=== PATIENT | male | born 1940 | race Caucasian/White ===

== ENCOUNTER → 2017-03-09 | Outpatient (CLI) | payer OTHER ==
[~2017-03-09] MED LIST: AMLO-114 PO; ASCO500C43 PO; ASPCH81X OR; CALCTAB7 PO; CHOL100027 PO; CINN500T PO; CLB/200 PO; CLC/300 PO; CRD200 PO; CRG625 PO; CYAN250T PO; FRS/40 PO; HYDC25 PO; HYDR-4717 PO; HYDR-5688 PO; INSU1INJ7 SC; LACT10SO30 PO; LEVO25TA PO; LISI40TA PO; MAGN400T5 PO; METF500T PO; MULTI VITAMIMINERALS PO; NVLGI SC; NVLNI SQ; OMEP20CA9 PO; ONDA8TAB6 PO; OXYC-409 PO; SIMV40TA2 PO; SSDCR400 TOP; WARF10TA PO; WARF5TAB90 PO; milk thistle PO
[2017-03-09 17:37] LABS: HEMATOCRIT 38.6 % (42-52); MEAN CELL VOLUME 83.4 fL (80-100); MEAN CORPUSCULAR HEMOGLOBIN 26.8 pg (25-34); MEAN CORPUSCULAR HGB CONC 32.1 g/dl (32-36); MEAN PLATELET VOLUME 10.3 fL (7.4-10.4); PLATELET COUNT 172 K/uL (130-400); RED BLOOD COUNT 4.63 M/uL (4.7-6.1); WHITE BLOOD COUNT 5.75 K/uL (4.8-10.8)
[2017-03-09 19:18] LABS: AST/SGOT 32 U/L (15-37); BLOOD UREA NITROGEN 31 mg/dl (7-18); CALCIUM 8.5 mg/dl (8.5-10.1); CARBON DIOXIDE 30 mmol/L (21-32); CHLORIDE 100 mmol/L (98-107); GLUCOSE 123 mg/dl (70-99); POTASSIUM 4.2 mmol/L (3.5-5.1); SODIUM 137 mmol/L (136-145)
[2017-03-09 19:28] LABS: ALB/GLOB RATIO 1.2 (0.9-2); ALKALINE PHOSPHATASE 84 U/L (45-117)
[2017-03-09 19:43] LABS: ALT/SGPT 41 U/L (12-78)
== END | disposition home or self-care (01) ==
LOC: C.LABBFT 14:41
PROVIDERS: ATTEND Internal Medicine Interventional Cardiology
DX: I25.10 Atherosclerotic heart disease of native coronary artery without angina pectoris (principal); I48.91 Unspecified atrial fibrillation

== ENCOUNTER → 2017-03-10 | Outpatient (CLI) | payer OTHER ==
[2017-03-10 12:55] LABS: CHOLESTEROL/HDL RATIO 3.1
== END | disposition home or self-care (01) ==
LOC: C.LABBFT 07:34
PROVIDERS: ATTEND Internal Medicine Interventional Cardiology
DX: E78.5 Hyperlipidemia, unspecified (principal)

== ENCOUNTER → 2017-12-02 | Outpatient (CLI) | payer OTHER ==
[2017-12-02 17:27] LABS: HEMATOCRIT 40.2 % (42-52); HEMOGLOBIN 12.8 g/dL (14.0-18.0); MEAN CELL VOLUME 82.4 fL (80-100); MEAN CORPUSCULAR HEMOGLOBIN 26.2 pg (25-34); MEAN CORPUSCULAR HGB CONC 31.8 g/dl (32-36); MEAN PLATELET VOLUME 10.4 fL (7.4-10.4); PLATELET COUNT 177 K/uL (130-400); RED CELL DISTRIBUTION WIDTH CV 16.5 % (11.5-14.5); WHITE BLOOD COUNT 6.39 K/uL (4.8-10.8)
[2017-12-02 17:40] LABS: ALT/SGPT 32 U/L (12-78); BLOOD UREA NITROGEN 31 mg/dl (7-18); CALCIUM 9.4 mg/dl (8.5-10.1); CARBON DIOXIDE 31 mmol/L (21-32); CHOLESTEROL 122 mg/dl (0-200); CREATININE 1.47 mg/dl (0.60-1.40); GLUCOSE 112 mg/dl (70-99); POTASSIUM 4.1 mmol/L (3.5-5.1); SODIUM 137 mmol/L (136-145)
[2017-12-02 17:43] LABS: ALKALINE PHOSPHATASE 87 U/L (45-117); AST/SGOT 34 U/L (15-37); LDL CHOLESTEROL CALCULATED 42 mg/dl; TOTAL PROTEIN 7.9 gm/dl (6.4-8.2)
[2017-12-02 17:51] LABS: CREATININE RANDOM URINE 28.2 mg/dl
[2017-12-03 06:23] LABS: HEMOGLOBIN A1C 6.8 % (4.5-5.6)
== END | disposition home or self-care (01) ==
LOC: C.LABBFT 12:52
PROVIDERS: ATTEND Physician Assistant Medical
DX: E11.49 Type 2 diabetes mellitus with other diabetic neurological complication (principal); I10 Essential (primary) hypertension

== ENCOUNTER → 2018-06-11 | Outpatient (CLI) | payer OTHER ==
[~2018-06-11] MED LIST changes: -AMLO-114 PO; +AMLO10TA3 PO; +ONDA-170 PO; -ONDA8TAB6 PO
[2018-06-11 17:47] LABS: HEMATOCRIT 40.1 % (42-52); HEMOGLOBIN 12.8 g/dL (14.0-18.0); MEAN CELL VOLUME 82.5 fL (80-100); MEAN CORPUSCULAR HEMOGLOBIN 26.3 pg (25-34); MEAN CORPUSCULAR HGB CONC 31.9 g/dl (32-36); MEAN PLATELET VOLUME 10.7 fL (7.4-10.4); PLATELET COUNT 160 K/uL (130-400); RED CELL DISTRIBUTION WIDTH CV 16.8 % (11.5-14.5); RED CELL DISTRIBUTION WIDTH SD 50.7 fL (36.4-46.3); WHITE BLOOD COUNT 5.42 K/uL (4.8-10.8)
[2018-06-11 18:00] LABS: ALBUMIN 3.7 gm/dl (3.4-5.0); ALKALINE PHOSPHATASE 82 U/L (45-117); ALT/SGPT 32 U/L (12-78); AST/SGOT 30 U/L (15-37); BLOOD UREA NITROGEN 29 mg/dl (7-18); CARBON DIOXIDE 30 mmol/L (21-32); CHOLESTEROL 108 mg/dl (0-200); CREATININE 1.56 mg/dl (0.60-1.40); GLUCOSE 197 mg/dl (70-99); LDL CHOLESTEROL CALCULATED 23 mg/dl; POTASSIUM 4.3 mmol/L (3.5-5.1); SODIUM 136 mmol/L (136-145); TOTAL PROTEIN 7.5 gm/dl (6.4-8.2)
[2018-06-12 07:52] LABS: HEMOGLOBIN A1C 7.5 % (4.5-5.6)
== END | disposition home or self-care (01) ==
LOC: C.LABBFT 14:06
PROVIDERS: ATTEND Physician Assistant Medical
DX: D64.9 Anemia, unspecified (principal); E78.5 Hyperlipidemia, unspecified; E11.29 Type 2 diabetes mellitus with other diabetic kidney complication

== ENCOUNTER 2020-09-07 16:18 | Observation (INO) ==
--- NOTE | 2020-09-07 16:58 | XRay Report ---
XR chest 1V portable HISTORY: Dyspnea COMPARISON: Chest 09/04/2020. FINDINGS: The heart remains enlarged. No pleural effusions. No pneumothorax. Mild interstitial thicke lamonte remains unchanged. No new focal lung consolidations to suggest pneumonia. No evidence for pulmon tila edema. IMPRESSION: Stable mild cardiomegaly. Otherwise, no acute process within the chest. ACT 112: Negative or not required by law. Electronically signed by: Wenceslao Singleton M.D. 09/07/2020 4:56 PM
[2020-09-07 17:23] LABS: Basophils # (auto) 0.04 K/uL (0-0.2); Basophils % (auto) 0.7 %; Eosinophils # (auto) 0.11 K/uL (0-0.5); Eosinophils % (auto) 1.8 %; Hematocrit (blood only) 37.3 % (42-52); Hemoglobin 11.7 g/dL (14.0-18.0); Immature Granulocytes # (auto) 0.01 K/uL (0.00-0.02); Immature Granulocytes % (auto) 0.2 %; Lymphocytes # (auto) 0.98 K/uL (1.2-3.4); Mean Corpuscular Hemoglobin 27.1 pg (25-34); Mean Corpuscular Hgb Conc 31.4 g/dL (32-36); Mean Corpuscular Volume 86.5 fL (80-100); Mean Platelet Volume 9.5 fL (7.4-10.4); Monocytes # (auto) 0.43 K/uL (0.11-0.59); Neutrophils # (auto) 4.56 K/uL (1.4-6.5); Neutrophils % (auto) 74.3 %; Platelet Count 169 K/uL (130-400); RDW Coefficient of Variation 16.9 % (11.5-14.5); RDW Standard Deviation 53.8 fL (36.4-46.3); Red Blood Count 4.31 M/uL (4.7-6.1); White Blood Count 6.13 K/uL (4.8-10.8)
[2020-09-07 17:24] LABS: INR 1.1 (0.9-1.1); Partial Thromboplastin Ratio 1.1; Partial Thromboplastin Time 29.3 Seconds (21.0-31.0); Prothrombin Time 11.1 Seconds (9.0-12.0)
[2020-09-07 17:28] LABS: Alanine Aminotransferase 15 U/L (12-78); Albumin Level 3.4 gm/dl (3.4-5.0); Aspartate Aminotransferase 16 U/L (15-37); BUN Creatinine Ratio 20.9 (10-20); Blood Urea Nitrogen 28 mg/dl (7-18); Calcium 8.9 mg/dl (8.5-10.1); Carbon Dioxide 36 mmol/L (21-32); Chloride 97 mmol/L (98-107); Creatinine Clr Calc Pharmacy 60.8 ml/min; Est GFR (Non-African American) 49.1; Glucose 128 mg/dl (70-99); Magnesium 2.1 mg/dl (1.8-2.4); Potassium 4.1 mmol/L (3.5-5.1); Sodium 136 mmol/L (136-145)
[2020-09-07 17:33] LABS: Albumin Globulin Ratio 0.8 (0.9-2); Alkaline Phosphatase 89 U/L (45-117); Bilirubin,Total 0.6 mg/dl (0.2-1); Globulin 4.4 gm/dl (2.5-4.0); NT Pro B Type Natriuretic Pept 633 pg/ml (0-1800); Total Protein 7.8 gm/dl (6.4-8.2); Troponin I < 0.015 ng/ml (0-0.045)
[2020-09-07] MEDS ORDERED: cefTRIAXone SODIUM 2,000 MG/70 ML BAG IV STA (17:44)
--- NOTE | 2020-09-07 18:36 | Emergency Department Note ---
Impression & Plan SOB (shortness of breath), Leg weakness, bilateral, Bilateral edema of lower extremity, Cellulitis of left lower extremity, Frequent falls, Subacute subdural hematoma, Lumbar transverse process fracture ED Provider Note INFORMANT: Patient ED PROVIDER(S): Spike Moulton MD CHIEF COMPLAINT: Shortness of breath, edema PLAN: Disposition: Admitted Condition: Good MEDICAL DECISION MAKING: Patient presented because of shortness of breath but also leg weakness. He has been falling. He had developed a cellulitis on his left lower extremity since his last visit. He was cultured and given IV Rocephin. His CBC, chemistry panel and cardiac work-up was negative. His ECG showed a sinus rhythm with PACs. Given the scenario he underwent CT PE study for further evaluation regarding his shortness of breath given his immobility even though his ultrasound imaging did not reveal any lower extremity clots on last visit. Patient's chest x-ray was unremarkable. Patient's CBC, chemistry panel and cardiac work-up was negative. The patient underwent CT imaging of his head which revealed an improving subdural hematoma with any chronic appearing component however there was a slight bit of an acute appearance. Given the patient's fall several days ago I suspect this is likely subacute. I did contact [facility], Dr. Fabian as the patient has been treated there before for his subdural and his trauma related issues. We discussed the case. As the patient is neurologically intact, has no headache or other symptoms and is 3 days out from his fall he recommended repeat imaging tomorrow. Neuro checks are also recommended and if the patient has any change in mental status for them to repeat imaging right away and to contact him as he is on-call all weekend. If the patient's condition changes or his CT scan worsens then he will be available for consultation and reconsider transfer. The patient underwent CT PE study which showed a mild bronchitis and possibly developing pneumonitis. The patient does not have any significant cough. He only notes shortness of breath with exertion or if he is lying flat. The patient also had a CT scan of his abdomen pelvis performed as to try and evaluate any issues for his lower extremity edema, weakness. The patient did not have any obvious evidence of significant vascular compromise or intra-abdominal process. He was incidentally noted to have some lumbar transverse process fractures. He does not have any saddle anesthesia or loss of bowel or bladder function. He has had intermittent weakness in his legs. I discussed further management in the hospital given everything that is going on and the patient and daughter were very much in a greement. The patient was given some oral Ativan for facilitation of MRI as he notes being claustrophobic. MRI was ordered. Consultation was made with internal medicine, Dr. Darnell. The patient did require a dose of Ativan during his MRI as well. Triage Nursing notes reviewed and agree them. Vital Signs: reviewed and remarkable for no significant abnormalities Differential diagnosis: CHF, PE, cardiac sources, infection, dehydration, metabolic abnormality, hypo/hyperglycemia, electrolyte disturbance, anemia, hypoxia, cardiac sources, intracerebral event, toxicologic, neurologic, as well as other pathologies. Diagnostics interpreted by me: ECG: Twelve-lead ECG reveals sinus rhythm with PACs at 72 bpm. There is a right bundle branch block. No ST elevation or depression. No PVCs. Normal axis. Cardiac Monitoring: Cardiac monitoring ordered by me: The patient was placed on continuous cardiac monitoring and observed. It revealed a normal sinus rhythm at 75 beats per minute without evidence of dysrhythmia. Imaging studies: Chest x-ray. Findings: A chest x-ray was performed and revealed no pneumothorax, effusion, infiltrate, pulmonary edema, free air under the diaphragm, or wide mediastinum. Impression: No acute disease. T scan of the head reveals a chronic subdural hematoma which has decreased in size however there is a slight component to suggest an acute on chronic appearance. As the patient had a fall 3 days ago this is likely a subacute finding. CT PE study is negative for pulmonary embolus. Mild bronchitis and questionable pneumonitis noted. CT scan of the abdomen pelvis does not reveal any acute intra-abdominal pathology however the patient does have lumbar transverse process fractures. I refer to the EMR for further details. Consultation(s): Dr. Fabian, neurosurgery [facility] Dr. Darnell, [facility] HPI: The patient is a 80 year old male who presents to the Emergency Room with complaints of shortness of breath and leg swelling. This started over the last week and is worsening. The patient also notes the following associated symptoms, shortness of breath, difficulty lying flat, intermittent leg weakness causing falls. The patient has had his Lasix increased for relieving factors. Current pain is rated as 0/10. Patient was in the ER and had a negative work- up. He felt well and was able to ambulate without difficulty. Ultrasound imaging at that time did not reveal any evidence of DVT. He was given IV Lasix and had his oral Lasix increased. Despite this his legs are still swollen. He does note redness in the left leg that was not previously present. He has been dealing with blisters on that leg from his edema. Pt denies LOC, headache, fevers, chills, diaphoresis, visual changes, neck pain, chest pain, nausea, vomiting, abdominal pain, back pain, melena, hematochezia, urinary symptoms, numbness, lymphadenopathy, or other complaints. ROS: See above HPI for pertinent positives & negatives. A total of 10 systems reviewed and were otherwise negative. PAST MEDICAL HISTORY:See Below, bowel perforation, diabetes, sleep apnea PAST SURGICAL HISTORY:See Below, FAMILY HISTORY:See Below SOCIAL HISTORY:See Below, currently residing at a nursing facility for rehab HOME MEDICATIONS:See Below ALLERGIES:See Below VITALS:See Below PHYSICAL EXAMINATION: GENERAL: Awake, alert, well-appearing, in no distress HENT: Normocephalic, atraumatic. Oropharynx unremarkable. EYES: Normal conjunctiva. Sclera non-icteric. NECK: Inspection normal. Non-tender. Supple. No nuchal rigidity. FROM. No masses. RESPIRATORY: Clear to auscultation. No wheezes. No rales. Normal respiratory effort. CARDIAC: Normal rate. Normal rhythm. No murmurs. No rubs. Extremities warm and well perfused. Pulses equal. No JVD. GI: Soft, non-distended. No tenderness to palpation. No rebound or guarding. No masses. There is a hematoma noted on the right flank and the patient thinks this is from his most recent fall. MUSCULOSKELETAL: Atraumatic. Chest examination reveals no tenderness. The back is symmetrical on inspection without obvious abnormality. There is no CVA tenderness to palpation. No joint edema. LOWER EXTREMITIES: Calves are equal size bilaterally and non-tender. No edema. Chronic venous discoloration bilaterally as well as erythematous discoloration on the left concerning for cellulitis. NEURO: Normal sensorium. No sensory or motor deficits noted. SKIN: Cellulitis of the left lower extremity. No rash or jaundice noted. Spike Moulton MD Past Med/Surg History Medical History (Updated 09/07/20 @ 22:56 by Spike Moulton MD) Acute on chronic combined systolic and diastolic CHF (congestive heart failure) (2011) Cardiomyopathy Frequent falls Hypertension, essential Hypothyroidism Idiopathic polyneuropathy Pulmonary hypertension Surgical History History of colonoscopy History of removal of cyst S/P TKR (total knee replacement) (03/22/14) Family History Unknown Hypertension Myocardial infarction Mother Diabetes Heart disease Father Myocardial infarction Alcoholic Denies family history of Ovarian cancer Prostate cancer Breast cancer Colorectal cancer Social History (Updated 06/27/20 @ 12:35 by Nam Diaz III, MD) Smoking Status: Former smoker Tobacco Type: Cigarettes Age Started Using Tobacco: 14; Age Quit Using Tobacco: 39; packs per day: 1; Cigarettes Per Day: 20; Number of Years Since Quit: 40; Second Hand Exposure: No; Hx Alcohol Use: Yes Alcohol type: wine Alcohol Intake Frequency: Monthly or Less Hx Substance Use: No Preferred Language: Faroese Communication Ability: Effective Visual Impairment: No Limitations Hearing Ability: Normal marital status: / Current Living Situation: Alone current occupational status: retired Feels Safe at Home: Yes Childhood Exposure to Second-Hand Smoke: Yes Dental Care, Regularly: No Physical Activity Frequency: Does not Exercise Seatbelt Use: never Sunscreen Use: No Allergies Allergies Allergy/AdvReac Type Severity Reaction Status Date / Time No Known Allergies Allergy Verified 09/07/20 20:56 Home Meds Home Medications Medication Instructions Recorded Confirmed ferrous sulfate 325 mg (65 mg 325 mg PO QAM tab 09/06/19 09/07/20 iron) tablet aspirin [Aspirin Low Dose] 81 mg PO QAM 07/23/20 09/07/20 Lactobacillus acidoph-L.bulgar 1 tab PO QAM 09/04/20 09/07/20 [Floranex] acetaminophen [Tylenol Extra 1,000 mg PO TID 09/04/20 09/07/20 Strength] amiodarone 100 mg PO QAM 09/04/20 09/07/20 calcium carbonate-vitamin D3 1 tab PO HS 09/04/20 09/07/20 [Oyster Shell Calcium-Vit D3] docusate sodium [Stool Softener] 100 mg PO BID 09/04/20 09/07/20 furosemide 40 mg PO QAM 09/04/20 09/07/20 insulin glargine [Basaglar KwikPen 20 unit SUBCUT HS 09/04/20 09/07/20 U-100 Insulin] levetiracetam 500 mg PO BID 09/04/20 09/07/20 lisinopril 40 mg PO QAM 09/04/20 09/07/20 magnesium hydroxide 400 mg PO HS 09/04/20 09/07/20 omeprazole 40 mg PO QAM 09/04/20 09/07/20 simvastatin 40 mg PO HS 09/04/20 09/07/20 vit A,C and [id number] 1 tab PO HS 09/04/20 09/07/20 [I-Edwin] vitamin E 400 unit PO QAM 09/04/20 09/07/20 cephalexin 500 mg PO BID 09/07/20 09/07/20 Previous Rx's Medication Instructions Recorded carvedilol 6.25 mg tablet 6.25 mg PO BID #180 tab 06/27/20 metformin 500 mg tablet 500 mg PO BID #180 tab 06/27/20 Results & Data (ED) Vital Signs Vital Signs - 24 hr 09/07/20 16:23 09/07/20 16:59 09/07/20 17:00 Temperature 36.7 C Temperature Source Oral Pulse Rate 73 Pulse Rate from SpO2 Sensor 73 Pulse Rhythm Regular Regular Pulse Strength Normal Respiratory Rate 24 22 20 Respiratory Effort / Characteristics SOB on Exertion Respiratory Depth Normal Respiratory Pattern Regular Blood Pressure 157/88 H 153/97 H Blood Pressure Mean 111 120 Blood Pressure Position Sitting Pulse Oximetry 96 97 95 Oxygen Delivery Method Room Air Room Air Sepsis Recent Fever Within 48 Hours No Sepsis New/Unexplained Change in Mental Status No Sepsis Action Taken by Nursing No Action Required 09/07/20 17:30 09/07/20 18:00 09/07/20 18:01 Temperature Temperature Source Pulse Rate Pulse Rate from SpO2 Sensor 77 74 78 Pulse Rhythm Pulse Strength Respiratory Rate 20 Respiratory Effort / Characteristics Respiratory Depth Respiratory Pattern Blood Pressure 139/97 154/91 H Blood Pressure Mean 113 109 Blood Pressure Position Pulse Oximetry 95 95 Oxygen Delivery Method Sepsis Recent Fever Within 48 Hours Sepsis New/Unexplained Change in Mental Status Sepsis Action Taken by Nursing 09/07/20 18:30 09/07/20 19:00 09/07/20 19:30 Temperature Temperature Source Pulse Rate 81 77 73 Pulse Rate from SpO2 Sensor 80 74 79 Pulse Rhythm Pulse Strength Respiratory Rate 23 25 H 22 Respiratory Effort / Characteristics Respiratory Depth Respiratory Pattern Blood Pressure 160/80 H 177/91 H Blood Pressure Mean 115 106 Blood Pressure Position Pulse Oximetry 94 95 92 Oxygen Delivery Method Sepsis Recent Fever Within 48 Hours Sepsis New/Unexplained Change in Mental Status Sepsis Action Taken by Nursing 09/07/20 20:15 09/07/20 20:30 09/07/20 21:00 Temperature Temperature Source Pulse Rate 80 75 Pulse Rate from SpO2 Sensor 75 81 81 Pulse Rhythm Pulse Strength Respiratory Rate 19 20 Respiratory Effort / Characteristics Respiratory Depth Respiratory Pattern Blood Pressure 154/81 H 177/88 H Blood Pressure Mean 114 112 Blood Pressure Position Pulse Oximetry 93 90 93 Oxygen Delivery Method Sepsis Recent Fever Within 48 Hours Sepsis New/Unexplained Change in Mental Status Sepsis Action Taken by Nursing 09/07/20 21:30 09/07/20 22:00 Temperature Temperature Source Pulse Rate 70 78 Pulse Rate from SpO2 Sensor Pulse Rhythm Pulse Strength Respiratory Rate 16 18 Respiratory Effort / Characteristics Respiratory Depth Respiratory Pattern Blood Pressure 167/90 H 159/99 H Blood Pressure Mean 128 115 Blood Pressure Position Pulse Oximetry Oxygen Delivery Method Sepsis Recent Fever Within 48 Hours Sepsis New/Unexplained Change in Mental Status Sepsis Action Taken by Nursing Laboratory Data Result diagrams: 09/07/20 16:53 09/07/20 16:53 Lab Results 09/07/20 09/07/20 09/07/20 Range/Units 16:53 16:53 16:53 WBC 6.13 (4.8-10.8) K/uL RBC 4.31 L (4.7-6.1) M/uL Hgb 11.7 L (14.0-18.0) g/dL Hct 37.3 L (42-52) % MCV 86.5 (80-100) fL MCH 27.1 (25-34) pg MCHC 31.4 L (32-36) g/dL RDW Std Deviation 53.8 H (36.4-46.3) fL RDW Coeff of Caryn 16.9 H (11.5-14.5) % Plt Count 169 (130-400) K/uL MPV 9.5 (7.4-10.4) fL Immature Gran % (Auto) 0.2 % Neut % (Auto) 74.3 % Lymph % (Auto) 16.0 % [place] % (Auto) 7.0 % Eos % (Auto) 1.8 % Baso % (Auto) 0.7 % Neut # (Auto) 4.56 (1.4-6.5) K/uL Lymph # (Auto) 0.98 L (1.2-3.4) K/uL [place] # (Auto) 0.43 (0.11-0.59) K/uL Eos # (Auto) 0.11 (0-0.5) K/uL Baso # (Auto) 0.04 (0-0.2) K/uL Immature Gran # (Auto) 0.01 (0.00-0.02) K/uL PT 11.1 (9.0-12.0) Seconds INR 1.1 (0.9-1.1) APTT 29.3 (21.0-31.0) Seconds PTT Ratio 1.1 Sodium 136 (136-145) mmol/L Potassium 4.1 (3.5-5.1) mmol/L Chloride 97 L (98-107) mmol/L Carbon Dioxide 36 H (21-32) mmol/L Anion Gap 3.0 (3-11) BUN 28 H (7-18) mg/dl Creatinine 1.36 (0.6-1.4) mg/dl Est Cr Clr Drug Dosing 60.8 ml/min Est GFR ( Amer) 57.0 Est GFR (Non-Af Amer) 49.1 BUN/Creatinine Ratio 20.9 H (10-20) Glucose 128 H (70-99) mg/dl Calcium 8.9 (8.5-10.1) mg/dl Magnesium 2.1 (1.8-2.4) mg/dl Total Bilirubin 0.6 (0.2-1) mg/dl AST 16 (15-37) U/L ALT 15 (12-78) U/L Alkaline Phosphatase 89 (45-117) U/L Troponin I < 0.015 (0-0.045) ng/ml NT-Pro-B Natriuret Pep 633 (0-1800) pg/ml Total Protein 7.8 (6.4-8.2) gm/dl Albumin 3.4 (3.4-5.0) gm/dl Globulin 4.4 H (2.5-4.0) gm/dl Albumin/Globulin Ratio 0.8 L (0.9-2) Urine Color Urine Appearance (Clear) Urine pH (4.5-7.5) Ur Specific [place] (1.000-1.030) Urine Protein (Negative) Urine Glucose (UA) (Negative) Urine Ketones (Negative) Urine Blood (Negative) Urine Nitrite (Negative) Urine Bilirubin (Negative) Urine Urobilinogen (Negative) Ur Leukocyte Esterase (Negative) Urine WBC (Auto) (0-5) /hpf Urine RBC (Auto) (0-4) /hpf U Hyaline Cast (Auto) (0-5) /lpf U Epithel Cells (Auto) (0-5) /lpf Urine Bacteria (Auto) (Negative) COVID-19 Eval Order COVID-19 PCR (Negative) 09/07/20 09/07/20 09/07/20 Range/Units 19:32 21:10 21:10 WBC (4.8-10.8) K/uL RBC (4.7-6.1) M/uL Hgb (14.0-18.0) g/dL Hct (42-52) % MCV (80-100) fL MCH (25-34) pg MCHC (32-36) g/dL RDW Std Deviation (36.4-46.3) fL RDW Coeff of Caryn (11.5-14.5) % Plt Count (130-400) K/uL MPV (7.4-10.4) fL Immature Gran % (Auto) % Neut % (Auto) % Lymph % (Auto) % [place] % (Auto) % Eos % (Auto) % Baso % (Auto) % Neut # (Auto) (1.4-6.5) K/uL Lymph # (Auto) (1.2-3.4) K/uL [place] # (Auto) (0.11-0.59) K/uL Eos # (Auto) (0-0.5) K/uL Baso # (Auto) (0-0.2) K/uL Immature Gran # (Auto) (0.00-0.02) K/uL PT (9.0-12.0) Seconds INR (0.9-1.1) APTT (21.0-31.0) Seconds PTT Ratio Sodium (136-145) mmol/L Potassium (3.5-5.1) mmol/L Chloride (98-107) mmol/L Carbon Dioxide (21-32) mmol/L Anion Gap (3-11) BUN (7-18) mg/dl Creatinine (0.6-1.4) mg/dl Est Cr Clr Drug Dosing ml/min Est GFR ( Amer) Est GFR (Non-Af Amer) BUN/Creatinine Ratio (10-20) Glucose (70-99) mg/dl Calcium (8.5-10.1) mg/dl Magnesium (1.8-2.4) mg/dl Total Bilirubin (0.2-1) mg/dl AST (15-37) U/L ALT (12-78) U/L Alkaline Phosphatase (45-117) U/L Troponin I (0-0.045) ng/ml NT-Pro-B Natriuret Pep (0-1800) pg/ml Total Protein (6.4-8.2) gm/dl Albumin (3.4-5.0) gm/dl Globulin (2.5-4.0) gm/dl Albumin/Globulin Ratio (0.9-2) Urine Color Yellow Urine Appearance Clear (Clear) Urine pH 7.0 (4.5-7.5) Ur Specific [place] 1.014 (1.000-1.030) Urine Protein 1+ H (Negative) Urine Glucose (UA) Negative (Negative) Urine Ketones Negative (Negative) Urine Blood Negative (Negative) Urine Nitrite Negative (Negative) Urine Bilirubin Negative (Negative) Urine Urobilinogen Negative (Negative) Ur Leukocyte Esterase Negative (Negative) Urine WBC (Auto) 1-5 (0-5) /hpf Urine RBC (Auto) 0-4 (0-4) /hpf U Hyaline Cast (Auto) 0 (0-5) /lpf U Epithel Cells (Auto) 0-5 (0-5) /lpf Urine Bacteria (Auto) Negative (Negative) COVID-19 Eval Order Covid19 Done at [facility] COVID-19 PCR NEGATIVE (Negative) Administered Medications Discontinued Medications Ceftriaxone Sodium (Rocephin) 2,000 mg in 70 mls @ 140 mls/hr IV NOW STA Stop: 09/07/20 18:13 Last Infusion: 09/07/20 19:52 Dose: 0 mls/hr Documented by: [id number] Admin: 09/07/20 19:22 Dose: 140 mls/hr Documented by: [id number] Ioversol (Optiray 320 125ml) 116 ml IV ONCE ONE Stop: 09/07/20 20:03 Last Admin: 09/07/20 20:02 Dose: 116 ml Documented by: [id number] Lorazepam (Lorazepam 0.5 Mg Tab) 0.5 mg PO NOW STA Stop: 09/07/20 22:13 Last Admin: 09/07/20 22:23 Dose: 0.5 mg Documented by: [id number] Discharge Plan Visit Data Chief Complaint: Edema To Extremity Stated Complaint: EDEMA TO LEGS, GROIN, AB ED Provider: Spike Moulton Discharge Problem: SOB (shortness of breath), Leg weakness, bilateral, Bilateral edema of lower extremity, Cellulitis of left lower extremity, Frequent falls, Subacute subdural hematoma, Lumbar transverse process fracture Forms Stand Alone Forms: [facility] Prescriptions Prescriptions: No Action carvedilol 6.25 mg tablet 6.25 mg PO BID Qty: 180 RF: 3 metformin 500 mg tablet 500 mg PO BID Qty: 180 RF: 3 ferrous sulfate 325 mg (65 mg iron) tablet 325 mg PO QAM RF: 0 aspirin [Aspirin Low Dose] 81 mg Tablet,Delayed Release (Dr/Ec) 81 mg PO QAM RF: 0 levetiracetam 500 mg Tablet 500 mg PO BID RF: 0 acetaminophen [Tylenol Extra Strength] 500 mg Tablet 1,000 mg PO TID RF: 0 docusate sodium [Stool Softener] 100 mg Capsule 100 mg PO BID RF: 0 lisinopril 40 mg Tablet 40 mg PO QAM RF: 0 vitamin E 400 unit Capsule 400 unit PO QAM RF: 0 calcium carbonate-vitamin D3 [Oyster Shell Calcium-Vit D3] 500 mg(1,250mg) - 200 unit Tablet 1 tab PO HS RF: 0 I-Edwin 1,000 unit-200 mg-60 unit-2 mg Tablet 1 tab PO HS RF: 0 Basaglar KwikPen U-100 Insulin 100 unit/mL (3 mL) Insulin Pen 20 unit SUBCUT HS RF: 0 Lactobacillus acidoph-L.bulgar [Floranex] 1 million cell Tablet 1 tab PO QAM RF: 0 furosemide 40 mg tablet 40 mg PO QAM RF: 0 omeprazole 40 mg capsule,delayed release(DR/EC) 40 mg PO QAM RF: 0 simvastatin 40 mg tablet 40 mg PO HS RF: 0 amiodarone 100 mg tablet 100 mg PO QAM RF: 0 magnesium hydroxide 400 mg (170 mg magnesium) tablet,chewable 400 mg PO HS RF: 0 cephalexin 500 mg capsule 500 mg PO BID RF: 0
[2020-09-07] MEDS ORDERED: OPTIRAY 320 125ml IV ONE (20:02)
[2020-09-07 20:14] LABS: Appearance Urine Clear (Clear); Bacteria Urine Automated Negative (Negative); Bilirubin Urine Negative (Negative); Blood Urine Negative (Negative); Cast Urine Automated 0 /lpf (0-5); Color Urine Yellow; Epithelial Cell Urine Auto 0-5 /lpf (0-5); Glucose Urine UA Negative (Negative); Ketones Urine Negative (Negative); Leukocyte Esterase Urine Negative (Negative); Nitrite Urine Negative (Negative); Protein Urine 1+ (Negative); RBC Urine Automated 0-4 /hpf (0-4); Specific Gravity Urine 1.014 (1.000-1.030); Urobilinogen Urine Negative (Negative)
--- NOTE | 2020-09-07 20:27 | CT Scan Report ---
HEAD CT NONCONTRAST CT DOSE: HISTORY: leg weakness, prior ICH TECHNIQUE: Multiaxial CT images of the head were performed without the use of intravenous contrast. A utomated exposure control was utilized for this study. A dose lowering technique was utilized adheri ng to the principles of ALARA. Comparison: Head CT 08/12/2020. Findings: The paranasal sinuses and mastoid air cells are clear. The calvarium and skull base are int act. There is no mass, or acute infarct. White matter hypodensity is nonspecific but suggestive of mi crovascular ischemic change. The ventricles and sulci demonstrate mild age-related involutional cavazos es. There is a small acute on chronic right-sided subdural hematoma. This has decreased in size in e interval. This demonstrates a maximal thickness of approximately 11 mm. No significant midline shif t. This results in mild mass effect along the right cerebral hemisphere. Impression: A small acute or chronic right-sided subdural hematoma. No associated midline shift. This has improve d in the interval. 6-[address] follow-up recommended to ensure stability. ACT 112: Negative or not required by law. Electronically signed by: Wenceslao Singleton M.D. 09/07/2020 8:26 PM
--- NOTE | 2020-09-07 20:36 | CT Scan Report ---
CHEST CTA for PULMONARY ARTERIES CT DOSE: HISTORY: Shortness of breath. TECHNIQUE: Multiaxial CT images of the chest were performed following the intravenous administration of contrast to evaluate the pulmonary arteries. Maximal intensity projection images were also obtaine d. A dose lowering technique was utilized adhering to the principles of ALARA. COMPARISON STUDY: Chest CT 06/02/2020. FINDINGS: Normal caliber thoracic aorta with no evidence for dissection. The heart remains mildly enl arged. No pleural or pericardial effusions. Nondiagnostic evaluation of the majority of the bilateral lower lobe subsegmental pulmonary arteries due to the motion artifact. However, the remaining pulmon tila arteries show no filling defects to suggest pulmonary embolus. Heterogeneous and mildly enlarged thyroid gland is again noted. Calcified right hilar lymph nodes. No hilar lymphadenopathy. A few mild ly enlarged right paratracheal lymph nodes remain unchanged. Dominant upper right paratracheal lymph node measures 14 mm in short axis diameter. Stable fat-containing lesion within the right chest wall. This favors a lipoma. Normal esophagus. No suspicious lytic or blastic osseous lesions. Multiple sage cified granuloma seen within the base of the right lower lobe. Groundglass densities within the lung bases posteriorly have slightly improved. This suggests chronic or due to dependent change. Faint upp er lobe predominant groundglass densities are noted. This could be due to air-trapping or a low-grade pneumonitis. Mild diffuse bronchial wall thickening, unchanged. Stable 2 mm nodule within the left l medardo apex on image 258. IMPRESSION: 1. No evidence for pulmonary embolus. 2. No change in the mildly enlarged right paratracheal lymph nodes. 3. Faint upper lobe predominant groundglass densities. This could be due to air-trapping or low-grade pneumonitis. 4. Mild bronchial wall thickening, unchanged. This favors a chronic bronchitis. ACT 112: Negative or not required by law. Electronically signed by: Wenceslao Singleton M.D. 09/07/2020 8:34 PM
--- NOTE | 2020-09-07 20:44 | CT Scan Report ---
ABDOMEN AND PELVIS CT WITH IV CONTRAST CT DOSE: 3211.05 mGy.cm HISTORY: right flank pain, fall. Run off. TECHNIQUE: Multiaxial CT images of the abdomen and pelvis were performed following the use of intrave nous contrast. A dose lowering technique was utilized adhering to the principles of ALARA. COMPARISON STUDY: Abdomen and pelvis CT 07/23/2020. FINDINGS: Please refer to the same day chest CTA for further evaluation of the lung bases. No pneumop eritoneum. No pneumatosis. Diffuse increased density within the visualized osseous structures, unchan ged. This could be due to renal osteodystrophy. Mildly displaced right L2 and L3 transverse process f ractures. No additional fractures identified within the abdomen or pelvis. Evidence for prior midline incision. Small fat-containing bilateral inguinal hernias. Mild to moderate body wall edema. There i s associated right flank subcutaneous contusion. Mild bladder wall thickening. This could be due to c hronic outlet obstruction from the enlarged prostate gland. Fatty atrophy of the paraspinal muscles. The liver, adrenal glands, and pancreas are within normal limits. Cholelithiasis. The spleen remains mildly enlarged. Multiple splenic calcified granulomas. Stable bilateral renal lesions. This includes the slightly hyperdense septated lesion within the lower pole the left kidney. No hydronephrosis. Mi ld calcified plaque within the normal caliber abdominal aorta. No evidence for bowel obstruction. Col onic diverticulosis. No evidence for acute diverticulitis. No bowel wall thickening. Normal appendix. Mild bilateral perinephric edema, unchanged. IMPRESSION: 1. Mildly displaced acute right L2 and L3 transverse process fractures. No additional fractures ident ified within the abdomen or pelvis. 2. Right flank soft tissue contusion. 3. Cholelithiasis. 4. Colonic diverticulosis. 5. Bilateral renal lesions, unchanged. 6. Stable splenomegaly. 7. Additional findings as described above. ACT 112: Negative or not required by law. Electronically signed by: Wenceslao Singleton M.D. 09/07/2020 8:43 PM
[2020-09-07] MEDS ORDERED: LORazepam 0.5 MG TAB PO STA (22:12)
[2020-09-07] MEDS ORDERED: LORazepam 0.5 MG/1 ML VIAL IV STA (23:01)
--- NOTE | 2020-09-07 23:34 | Magnetic Resonance Report ---
LUMBAR SPINE MRI HISTORY: leg weakness, L2, L3 transverse process fractures TECHNIQUE: Sagittal T2 and sagittal STIR sequence of the lumbar spine were obtained. The patient was unable to complete the entire examination. No contrast was administered. COMPARISON: Abdomen and pelvis CT 09/07/2020. FINDINGS: Right-sided L2 and L3 transverse process fractures are better appreciated on the same day a bdomen and pelvis CT. This likely accounts for the right paraspinal edema within the lumbar spine. Ve rtebral body heights are maintained. Disc spaces are preserved for age. The conus terminates at the T 12-L1 disc space level. Mild facet degenerative changes within the lower lumbar spine. Broad-based po sterior disc bulges with tiny focal annular tears at L3-L4, L4-L5, and L5-S1. This results in moderat e central canal narrowing at the L3-L4 level. No additional areas of central canal narrowing. Small T arlov cyst at S2. Subcutaneous edema within the lumbar region. There is also mild edema within the bi lateral psoas muscles. This is only partially imaged on this study. Small intramuscular hematomas cou ld also have a similar appearance but are considered less likely. IMPRESSION: 1. Study is limited from a technical standpoint as the patient was unable to complete the entire exam . Only the sagittal T2 and sagittal STIR sequences were obtained. 2. Moderate central canal narrowing at L3-L4 due to a broad-based posterior disc bulge. 3. The right L2 and L3 transverse process fractures are better appreciated on the same day abdomen an d pelvis CT. This likely accounts for the partially visualized right paraspinal edema. 4. There is also small areas of focal edema within the bilateral psoas muscles. This is only partiall y imaged on this study. Small intramuscular hematomas could also have a similar appearance but are co nsidered less likely. ACT 112: Negative or not required by law. Electronically signed by: Wenceslao Singleton M.D. 09/07/2020 11:33 PM
[2020-09-08] MEDS ORDERED: GLUCOSE 10 TABS/TUBE PO PRN (01:32)
[2020-09-08] MEDS ORDERED: GLUCOSE 40% GEL 15 GM TUBE PO PRN (01:32)
[2020-09-08] MEDS ORDERED: CARBOHYDRATES FOR HYPOGLYCEMIA PO PRN (01:32)
[2020-09-08] MEDS ORDERED: GLUCAGON FOR INJ 1 MG VIAL SQ PRN (01:32)
[2020-09-08] MEDS ORDERED: DEXTROSE 50% 50 ML SYRINGE IV PRN (01:32)
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
[2020-09-08] MEDS: ACETAMINOPHEN 500 MG TAB PO SCH ×3 (06:18→22:11)
[2020-09-08] MEDS: INSULIN ASPART 100 UNITS/ML 3 ML PEN SC SCH ×4 (08:39→22:17)
[2020-09-08] MEDS: PANTOprazole 40 MG TAB PO SCH (08:44)
[2020-09-08] MEDS: carvediloL 6.25 MG TAB PO SCH ×2 (08:44→22:13)
[2020-09-08] MEDS: FERROUS SULFATE 325 MG TAB PO SCH (08:44)
[2020-09-08] MEDS: levETIRAcetam 500 MG TAB PO SCH ×2 (08:44→22:13)
[2020-09-08] MEDS: lisinopril 40 MG TAB PO SCH (08:44)
[2020-09-08] MEDS: AMIODARONE 200 MG TAB PO SCH (08:45)
[2020-09-08] MEDS: DOCUSATE SODIUM 100 MG CAP PO SCH ×2 (08:45→22:12)
[2020-09-08] MEDS ORDERED: cephALEXin 500 MG CAP PO SCH (09:00)
[2020-09-08] MEDS ORDERED: ASPIRIN 81 MG ECTAB PO SCH (09:00)
--- NOTE | 2020-09-08 09:27 | CT Scan Report ---
CT OF THE HEAD WITHOUT CONTRAST CLINICAL HISTORY: assess SDH stability COMPARISON STUDY: Head CT September 07, 2020. CT DOSE: 614.27 mGy.cm TECHNIQUE: Helical axial images of the head were obtained without IV contrast. Automated exposure con trol was utilized for the study. A dose lowering technique was utilized adhering to the principles o f ALARA. FINDINGS: A mixed attenuation right subdural hematoma measuring 1 cm in thickness is similar in size to CT of September 07, 2020. The attenuation has slightly increased since prior exam. There is no midli ne shift. There is no significant compression of the right lateral ventricle. There is mild sulcal ef facement. This mass effect is unchanged. No new sites of hemorrhage are identified which compared to head CT of September 07, 2020. Mild white matter hypodensity suggests small vessel disease. There are n o findings to suggest acute dural sinus thrombosis or acute territorial infarct. There is no calvaria l fracture. IMPRESSION: No change in size of a small right subdural hematoma since head CT of September 07, 2020. A ttenuation of the hematoma has slightly increased. This suggests an acute on chronic subdural hematom a. Minimal sulcal effacement without midline shift. A follow-up head CT in 12 to 24 hours is recommen ded. ACT 112: Negative or not required by law. Electronically signed by: Marvel Heath M.D. 09/08/2020 9:26 AM
[2020-09-08] MEDS ORDERED: PERFLUTREN LIPID MICROSPHERE (DEFINITY) IV ONE (10:25)
[2020-09-08] MEDS ORDERED: PIPERACILL/TAZOBAC CONSULT ACTIVE PRN (12:13)
[2020-09-08] MEDS ORDERED: PIPERACILLIN/TAZOBACTAM 3.375 GM in DEXTROSE 5% 100 ML IV SCH (12:15)
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
[2020-09-08] MEDS ORDERED: PIPERACILLIN/TAZOBACTAM 4.5 GM in DEXTROSE 5% 100 ML IV ONE (12:30)
[2020-09-08] MEDS: DAPTOmycin 400 MG in SYRINGE 0 ML IV SCH (13:10)
--- NOTE | 2020-09-08 17:00 | XCELERA ---
[id number]
[2020-09-08] MEDS: PIPERACILLIN/TAZOBACTAM 4.5 GM in DEXTROSE 5% 100 ML IV SCH (17:11)
[2020-09-08] MEDS ORDERED: SIMVASTATIN 40 MG TAB PO SCH (21:00)
[2020-09-08] MEDS: MAGNESIUM OXIDE 400 MG TAB PO SCH (22:14)
[2020-09-08] MEDS: INSULIN GLARGINE SOLOSTAR 100 UNITS/ML 3 ML PEN SQ SCH (22:15)
[2020-09-09] MEDS: PIPERACILLIN/TAZOBACTAM 4.5 GM in DEXTROSE 5% 100 ML IV SCH ×3 (02:27→17:10)
[2020-09-09 06:29] LABS: Basophils # (auto) 0.03 K/uL (0-0.2); Basophils % (auto) 0.6 %; Eosinophils # (auto) 0.14 K/uL (0-0.5); Eosinophils % (auto) 2.8 %; Hematocrit (blood only) 36.1 % (42-52); Hemoglobin 11.4 g/dL (14.0-18.0); Immature Granulocytes # (auto) 0.02 K/uL (0.00-0.02); Immature Granulocytes % (auto) 0.4 %; Lymphocytes % (auto) 16.1 %; Mean Corpuscular Hgb Conc 31.6 g/dL (32-36); Mean Corpuscular Volume 85.5 fL (80-100); Mean Platelet Volume 9.5 fL (7.4-10.4); Monocytes # (auto) 0.37 K/uL (0.11-0.59); Monocytes % (auto) 7.5 %; Neutrophils % (auto) 72.6 %; Platelet Count 166 K/uL (130-400); RDW Coefficient of Variation 16.9 % (11.5-14.5); RDW Standard Deviation 52.8 fL (36.4-46.3); Red Blood Count 4.22 M/uL (4.7-6.1); White Blood Count 4.96 K/uL (4.8-10.8)
[2020-09-09] MEDS: ACETAMINOPHEN 500 MG TAB PO SCH ×3 (06:41→21:32)
[2020-09-09 06:47] LABS: Albumin Level 3.1 gm/dl (3.4-5.0); BUN Creatinine Ratio 21.9 (10-20); Bilirubin Direct 0.1 mg/dl (0-0.2); Calcium 8.8 mg/dl (8.5-10.1); Creatinine Clr Calc Pharmacy 71.3 ml/min; Est GFR (Non-African American) 59.6
[2020-09-09 06:56] LABS: Bilirubin,Total 0.6 mg/dl (0.2-1); Ferritin 49.5 ng/ml (8-388); Thyroid Stimulating Hormone 2.52 uIu/ml (0.300-4.500); Total Protein 7.2 gm/dl (6.4-8.2)
--- NOTE | 2020-09-09 08:16 | CT Scan Report ---
HEAD CT NONCONTRAST CT DOSE: 537.48 mGy.cm HISTORY: reassess SDH TECHNIQUE: Multiaxial CT images of the head were performed without the use of intravenous contrast. A utomated exposure control was utilized for this study. A dose lowering technique was utilized adheri ng to the principles of ALARA. Comparison: Head CT 09/08/2020. Findings: The paranasal sinuses and mastoid air cells are clear. The calvarium and skull base are int act. No change in the small acute on chronic right subdural hematoma measuring a maximal thickness of 10 mm. No significant mass effect or midline shift. Impression: No change in the small right-sided acute on chronic subdural hematoma. ACT 112: Negative or not required by law. Electronically signed by: Wenceslao Singleton M.D. 09/09/2020 8:15 AM
[2020-09-09] MEDS: INSULIN ASPART 100 UNITS/ML 3 ML PEN SC SCH ×4 (08:43→21:36)
[2020-09-09] MEDS: AMIODARONE 200 MG TAB PO SCH (08:44)
[2020-09-09] MEDS: lisinopril 40 MG TAB PO SCH (08:45)
[2020-09-09] MEDS: FERROUS SULFATE 325 MG TAB PO SCH (08:46)
[2020-09-09] MEDS: PANTOprazole 40 MG TAB PO SCH (08:47)
[2020-09-09] MEDS: carvediloL 6.25 MG TAB PO SCH ×2 (08:47→21:33)
[2020-09-09] MEDS: DOCUSATE SODIUM 100 MG CAP PO SCH ×2 (08:47→21:27)
[2020-09-09] MEDS: levETIRAcetam 500 MG TAB PO SCH ×2 (08:48→21:33)
[2020-09-09] MEDS: HYDROCODONE/ACETAMOPHEN 5/325MG TAB PO PRN ×3 (08:57→21:57)
[2020-09-09] MEDS ORDERED: FUROSEMIDE 40 MG TAB PO SCH (09:00)
[2020-09-09] MEDS ORDERED: FUROSEMIDE 20 MG TAB PO SCH (09:00)
--- NOTE | 2020-09-09 09:41 | Ultrasound Report ---
US arterial duplex LE RT CLINICAL HISTORY: poor pulses,wounds left leg COMPARISON STUDY: None. FINDINGS: Diffuse calcified plaque seen throughout the right lower extremity arterial structures. Nor mal biphasic to triphasic waveforms and velocities seen within the right common femoral, superficial femoral, popliteal arteries. The proximal to mid right posterior tibial artery appears occluded. The distal posterior tibial artery is patent. The patient refused the remaining examination. IMPRESSION: 1. 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 2. The patient refused the remaining right calf vessels as well as the left lower extremity. ACT 112: Negative or not required by law. Electronically signed by: Wenceslao Singleton M.D. 09/09/2020 9:40 AM
--- NOTE | 2020-09-09 10:37 | Orthopedic Consultation ---
Date of Consultation September 09, 2020 Assessment & Plan (1) Lumbar transverse process fracture: Patient does have transverse process fractures. I have emphasized to the patient that these will heal up nicely on their own without any surgical intervention. He would not be limited with physical therapy and Occupational Therapy regarding his fractures. He does have evidence of significant spondylosis and hints of anterolisthesis L3-4 L4-5. The MRI scan is compromised and not complete. He may have a component of lumbar instability. Nevertheless he is a very poor surgical candidate and I recommend rehab. Present on Admission?: Yes History of Present Illness Reason for Consultation: Back pain with bilateral leg weakness Attending Physician: Kassidy Fletcher MD History of Present Illness This is a 80-year-old male who presents with multiple medical issues and decline in function to the lower extremities. Particularly in the way of weakness. He does have lower extremity vascular issues as well as cellulitis. He believes that his symptoms were fairly sudden in onset. He notes marked difficulty with any prolonged standing and walking. He denies any significant back pain this morning. Allergies Allergy/AdvReac Type Severity Reaction Status Date / Time No Known Allergies Allergy Verified 09/07/20 20:56 Home Medications Home Medications Medication Instructions Recorded Confirmed Type ferrous sulfate 325 mg (65 mg 325 mg PO QAM tab 09/06/19 09/07/20 History iron) tablet carvedilol 6.25 mg tablet 6.25 mg PO BID #180 tab 06/27/20 09/07/20 Rx metformin 500 mg tablet 500 mg PO BID #180 tab 06/27/20 09/07/20 Rx aspirin [Aspirin Low Dose] 81 mg PO QAM 07/23/20 09/07/20 History Lactobacillus acidoph-L.bulgar 1 tab PO QAM 09/04/20 09/07/20 History [Floranex] acetaminophen [Tylenol Extra 1,000 mg PO TID 09/04/20 09/07/20 History Strength] amiodarone 100 mg PO QAM 09/04/20 09/07/20 History calcium carbonate-vitamin D3 1 tab PO HS 09/04/20 09/07/20 History [Oyster Shell Calcium-Vit D3] docusate sodium [Stool Softener] 100 mg PO BID 09/04/20 09/07/20 History furosemide 40 mg PO QAM 09/04/20 09/07/20 History insulin glargine [Basaglar KwikPen 20 unit SUBCUT HS 09/04/20 09/07/20 History U-100 Insulin] levetiracetam 500 mg PO BID 09/04/20 09/07/20 History lisinopril 40 mg PO QAM 09/04/20 09/07/20 History magnesium hydroxide 400 mg PO HS 09/04/20 09/07/20 History omeprazole 40 mg PO QAM 09/04/20 09/07/20 History simvastatin 40 mg PO HS 09/04/20 09/07/20 History vit A,C and T-liarza-ascflmkc 1 tab PO HS 09/04/20 09/07/20 History [I-Edwin] vitamin E 400 unit PO QAM 09/04/20 09/07/20 History cephalexin 500 mg PO BID 09/07/20 09/07/20 History Patient History Medical History (Updated 09/08/20 @ 21:50 by Kassidy Fletcher MD) Acute on chronic combined systolic and diastolic CHF (congestive heart failure) (2010) Anemia Cardiomyopathy CKD (chronic kidney disease) stage 3, GFR 30-59 ml/min Dyslipidemia Frequent falls Hypertension, essential Hypothyroidism Idiopathic polyneuropathy Mitral valve regurgitation (05/03/11) Obstructive sleep apnea Pulmonary hypertension Renal mass Type 2 diabetes mellitus with diabetic neuropathy, with long-term current use of insulin Type 2 diabetes mellitus with microalbuminuria, with long-term current use of insulin Surgical History History of colonoscopy History of removal of cyst S/P TKR (total knee replacement) (03/22/14) Family History Unknown Hypertension Myocardial infarction Mother Diabetes Heart disease Father Myocardial infarction Alcoholic Denies family history of Ovarian cancer Prostate cancer Breast cancer Colorectal cancer Social History (Updated 06/27/20 @ 12:35 by Nam Diaz III, MD) Smoking Status: Former smoker Tobacco Type: Cigarettes Age Started Using Tobacco: 14; Age Quit Using Tobacco: 39; packs per day: 1; Cigarettes Per Day: 20; Number of Years Since Quit: 40; Second Hand Exposure: No; Do You Dip or Chew Tobacco: No; Hx Alcohol Use: No Hx Substance Use: No Preferred Language: Yoruba Communication Ability: Effective Visual Impairment: No Limitations Hearing Ability: Normal Correspondence Transcriber Required: No Beliefs That Will Affect Care: None marital status: / Current Living Situation: Alone current occupational status: retired Other Information That Helps Us Care for You: No Feels Safe at Home: Yes Safety Concerns: Feels Safe At This Time Childhood Exposure to Second-Hand Smoke: Yes Dental Care, Regularly: No Physical Activity Frequency: Does not Exercise Seatbelt Use: never Sunscreen Use: No Assistive Devices: Glasses Physical Exam Physical Exam: Is in bed. He is alert and cooperative. He has plantar flexion dorsiflexion bilaterally. I did not have him get out of bed. Results & Data ([facility]) Vital Signs (Past 12 Hours) Vital Signs Temp Pulse Resp BP Pulse Ox 09/09/20 07:55 36.5 C 76 18 185/97 H 93 09/09/20 07:48 36.4 C L 76 18 185/97 H 93 09/08/20 23:35 36.5 C 80 18 161/93 H 92 (1) Lumbar transverse process fracture Encounter type: initial encounter Fracture type: closed Qualified Code(s): S32.009A - Unspecified fracture of unspecified lumbar vertebra, initial encounter for closed fracture
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
[2020-09-09] MEDS: DAPTOmycin 400 MG in SYRINGE 0 ML IV SCH (12:06)
[2020-09-09 13:08] LABS: Vitamin B12 > 2000 pg/ml (211-911)
--- NOTE | 2020-09-09 13:53 | Electrocardiogram Report ---
Test Reason : Blood Pressure : / mmHG Vent. Rate : 072 BPM Atrial Rate : 072 BPM P-R Int : 138 ms QRS Dur : 146 ms QT Int : 480 ms P-R-T Axes : 044 014 270 degrees QTc Int : 525 ms Sinus rhythm with Premature atrial complexes Right bundle branch block Abnormal ECG When compared with ECG of 04-SEP-2020 14:17, Premature atrial complexes are now Present Nonspecific T wave abnormality, worse in Anterior leads Confirmed by Kumar Finnegan ([id number]) on 09/09/2020 1:52:55 PM Referred By: [facility] Confirmed By:Kumar Finnegan
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
[2020-09-09] MEDS ORDERED: hydrOXYzine HCl 25 MG TAB PO STA (20:49)
[2020-09-09] MEDS: INSULIN GLARGINE SOLOSTAR 100 UNITS/ML 3 ML PEN SQ SCH (21:34)
[2020-09-09] MEDS: MAGNESIUM OXIDE 400 MG TAB PO SCH (21:34)
[2020-09-10] MEDS: PIPERACILLIN/TAZOBACTAM 4.5 GM in DEXTROSE 5% 100 ML IV SCH ×3 (03:16→17:04)
[2020-09-10 06:38] LABS: Basophils # (auto) 0.04 K/uL (0-0.2); Basophils % (auto) 0.8 %; Eosinophils # (auto) 0.18 K/uL (0-0.5); Eosinophils % (auto) 3.4 %; Hematocrit (blood only) 37.8 % (42-52); Hemoglobin 11.8 g/dL (14.0-18.0); Immature Granulocytes # (auto) 0.01 K/uL (0.00-0.02); Immature Granulocytes % (auto) 0.2 %; Lymphocytes # (auto) 0.95 K/uL (1.2-3.4); Lymphocytes % (auto) 18.2 %; Mean Corpuscular Hemoglobin 26.9 pg (25-34); Mean Corpuscular Hgb Conc 31.2 g/dL (32-36); Mean Corpuscular Volume 86.3 fL (80-100); Mean Platelet Volume 9.5 fL (7.4-10.4); Monocytes # (auto) 0.43 K/uL (0.11-0.59); Monocytes % (auto) 8.2 %; Neutrophils # (auto) 3.62 K/uL (1.4-6.5); Neutrophils % (auto) 69.2 %; Platelet Count 169 K/uL (130-400); RDW Coefficient of Variation 16.9 % (11.5-14.5); Red Blood Count 4.38 M/uL (4.7-6.1); White Blood Count 5.23 K/uL (4.8-10.8)
[2020-09-10 06:45] LABS: Estimated Average Glucose 120 mg/dl; Hemoglobin A1C 5.8 % (4.5-5.6)
[2020-09-10] MEDS: ACETAMINOPHEN 500 MG TAB PO SCH ×3 (06:50→21:07)
[2020-09-10 07:11] LABS: BUN Creatinine Ratio 19.6 (10-20); Calcium 8.7 mg/dl (8.5-10.1); Creatinine Clr Calc Pharmacy 65.1 ml/min; Est GFR (African American) 61.9; Est GFR (Non-African American) 53.4
[2020-09-10] MEDS: lisinopril 40 MG TAB PO SCH (07:36)
[2020-09-10] MEDS: FUROSEMIDE 40 MG TAB PO SCH ×2 (07:36→17:04)
[2020-09-10] MEDS: AMIODARONE 200 MG TAB PO SCH (07:36)
[2020-09-10] MEDS: carvediloL 6.25 MG TAB PO SCH ×2 (07:36→20:16)
[2020-09-10] MEDS: DOCUSATE SODIUM 100 MG CAP PO SCH ×2 (07:37→20:16)
[2020-09-10] MEDS: levETIRAcetam 500 MG TAB PO SCH ×2 (07:37→20:16)
[2020-09-10] MEDS: FERROUS SULFATE 325 MG TAB PO SCH ×2 (07:37→17:03)
[2020-09-10] MEDS: INSULIN ASPART 100 UNITS/ML 3 ML PEN SC SCH ×4 (08:20→20:17)
[2020-09-10] MEDS: PANTOprazole 40 MG TAB PO SCH (08:51)
[2020-09-10] MEDS: DAPTOmycin 400 MG in SYRINGE 0 ML IV SCH (12:43)
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
[2020-09-10] MEDS: MAGNESIUM OXIDE 400 MG TAB PO SCH (20:16)
[2020-09-10] MEDS: INSULIN GLARGINE SOLOSTAR 100 UNITS/ML 3 ML PEN SQ SCH (20:18)
[2020-09-11] MEDS: PIPERACILLIN/TAZOBACTAM 4.5 GM in DEXTROSE 5% 100 ML IV SCH ×2 (02:48→09:07)
[2020-09-11] MEDS: ACETAMINOPHEN 500 MG TAB PO SCH ×3 (06:06→20:39)
[2020-09-11] MEDS: levETIRAcetam 500 MG TAB PO SCH ×2 (07:51→20:07)
[2020-09-11] MEDS: INSULIN ASPART 100 UNITS/ML 3 ML PEN SC SCH ×4 (07:51→20:38)
[2020-09-11] MEDS: lisinopril 40 MG TAB PO SCH (07:51)
[2020-09-11] MEDS: DOCUSATE SODIUM 100 MG CAP PO SCH ×2 (07:51→20:09)
[2020-09-11] MEDS: FERROUS SULFATE 325 MG TAB PO SCH ×2 (07:51→17:09)
[2020-09-11] MEDS: AMIODARONE 200 MG TAB PO SCH (07:52)
[2020-09-11] MEDS: carvediloL 6.25 MG TAB PO SCH ×2 (07:52→20:08)
[2020-09-11] MEDS: FUROSEMIDE 40 MG TAB PO SCH ×2 (07:52→17:08)
[2020-09-11] MEDS: PANTOprazole 40 MG TAB PO SCH (07:53)
[2020-09-11] MEDS ORDERED: MIDAZOLAM HCL 1 MG/ML 2ML VIAL ONE ×2 (11:05)
[2020-09-11] MEDS ORDERED: PROPOFOL IV EMULSION 10 MG/ML 20 ML VIAL IV ONE (11:05)
[2020-09-11] MEDS ORDERED: LIDOCAINE HCL 2% 2 ML VIAL/AMP(20MG/ML) INFIL ONE (11:06)
[2020-09-11] MEDS ORDERED: KETAMINE 50 MG/5 ML SYRINGE ONE (11:12)
[2020-09-11] MEDS ORDERED: GADOBUTROL 65ML VIAL IV ONE (13:11)
--- NOTE | 2020-09-11 13:45 | Magnetic Resonance Report ---
MR brain wo/w con HISTORY: 80 years-old Male leg weakness,SDH,assess for CVA subacute bilateral lower extremity weakne ss. Follow-up study in a patient with small acute on chronic right-sided subdural hematoma. COMPARISON: Head CT 09/08/2020 TECHNIQUE: Multiplanar multisequence MRI the brain was obtained both with and without the use of 13.0 mL Gadavist FINDINGS: Optics Test Technician localizer images illustrate no gross extracranial abnormality. There is no restricted diffusion to suggest acute or subacute infarct. Midline structures including the corpus callosum, brainstem, o ptic chiasm, pituitary and pineal glands appear unremarkable the sagittal T1 series. No cerebellar to nsillar herniation. Degenerative changes are noted involving the imaged cervical spine. Age-related involutional changes with mild ex vacuo ventriculomegaly. Extensive and confluent white m atter T2/FLAIR hyperintensities suggest chronic microvascular ischemic disease. Small acute on chroni c right-sided subdural hematoma redemonstrated which appears unchanged in size measuring up to 10 mm. There is no midline shift. No acute intraparenchymal or intraventricular hemorrhage. No hydrocephalu s. No intra-axial mass. Likely reactive dural enhancement on the right cerebral convexity. Megacister na magna. Cerebral venous sinuses and major arterial flow voids at the level of the skull base appear patent. Mastoid air cells are clear. Skull, orbits and soft tissues are unremarkable. There is mild asymmetric distention of the subarachnoid space surrounding the left optic nerve, nonspecific. IMPRESSION: 1. Unchanged small acute on chronic subdural hematoma of the right cerebral convexity measures up to 10 mm. No midline shift, significant mass effect or hydrocephalus. 2. Likely reactive dural enhancement along the right cerebral convexity. 3. Age-related involutional changes with extensive chronic microvascular ischemic disease. 4. No acute or subacute infarct. ACT 112: Negative or not required by law. The above report was generated using voice recognition software. It may contain grammatical, syntax o r spelling errors. Electronically signed by: Dane Tracy M.D. 09/11/2020 1:44 PM
--- NOTE | 2020-09-11 13:53 | Anesthesiology Consultation ---
Date of Service September 11, 2020 Assessment & Plan Chart Review Chart Review: Acceptable Risk for Surgery Consults Requested none History Height/Weight Height: 6 ft Weight: 127.6 kg Allergies Allergy/AdvReac Type Severity Reaction Status Date / Time No Known Allergies Allergy Verified 09/07/20 20:56 Medications Home Medications Medication Instructions Recorded Confirmed Last Taken ferrous sulfate 325 mg (65 mg 325 mg PO QAM tab 09/06/19 09/07/20 09/04/20 iron) tablet carvedilol 6.25 mg tablet 6.25 mg PO BID #180 tab 06/27/20 09/07/20 09/04/20 08:00 metformin 500 mg tablet 500 mg PO BID #180 tab 06/27/20 09/07/20 09/04/20 08:00 aspirin [Aspirin Low Dose] 81 mg PO QAM 07/23/20 09/07/20 09/04/20 Lactobacillus acidoph-L.bulgar 1 tab PO QAM 09/04/20 09/07/20 09/04/20 [Floranex] acetaminophen [Tylenol Extra 1,000 mg PO TID 09/04/20 09/07/20 09/04/20 08:00 Strength] amiodarone 100 mg PO QAM 09/04/20 09/07/20 09/04/20 calcium carbonate-vitamin D3 1 tab PO HS 09/04/20 09/07/20 09/03/20 [Oyster Shell Calcium-Vit D3] docusate sodium [Stool Softener] 100 mg PO BID 09/04/20 09/07/20 09/04/20 08:00 furosemide 40 mg PO QAM 09/04/20 09/07/20 09/04/20 insulin glargine [Basaglar KwikPen 20 unit SUBCUT HS 09/04/20 09/07/20 09/03/20 U-100 Insulin] levetiracetam 500 mg PO BID 09/04/20 09/07/20 09/04/20 08:00 lisinopril 40 mg PO QAM 09/04/20 09/07/20 09/04/20 magnesium hydroxide 400 mg PO HS 09/04/20 09/07/20 09/03/20 omeprazole 40 mg PO QAM 09/04/20 09/07/20 09/04/20 simvastatin 40 mg PO HS 09/04/20 09/07/20 09/03/20 vit A,C and J-agwzti-caxqtlci 1 tab PO HS 09/04/20 09/07/20 09/03/20 [I-Edwin] vitamin E 400 unit PO QAM 09/04/20 09/07/20 09/04/20 cephalexin 500 mg PO BID 09/07/20 09/07/20 Unknown Active Medications Generic Name Dose Route Start Last Admin Trade Name Freq PRN Reason Stop Dose Admin Acetaminophen 1,000 mg 09/08/20 06:00 09/11/20 06:06 Acetaminophen 500 Mg Tab PO 10/08/20 05:59 1,000 mg Q8 HANSEL Administration Hydrocodone Bitart/Acetaminophen 1 tab 09/09/20 08:49 09/09/20 21:57 Hydrocodone/Acetamophen 5/325mg Tab PO 09/23/20 08:48 1 tab Q6 PRN Administration Pain Amiodarone HCl 100 mg 09/08/20 09:00 09/11/20 07:52 Amiodarone 200 Mg Tab PO 10/08/20 08:59 100 mg QAM HANSEL Administration Carvedilol 6.25 mg 09/08/20 09:00 09/11/20 07:52 Carvedilol 6.25 Mg Tab PO 10/08/20 08:59 6.25 mg BID HANSEL Administration Docusate Sodium 100 mg 09/08/20 09:00 09/11/20 07:51 Docusate Sodium 100 Mg Cap PO 10/08/20 08:59 100 mg BID HANSEL Administration Ferrous Sulfate 325 mg 09/10/20 08:00 09/11/20 07:51 Ferrous Sulfate 325 Mg Tab PO 10/10/20 07:59 325 mg BIDM HANSEL Administration Furosemide 40 mg 09/10/20 09:00 09/11/20 07:52 Furosemide 40 Mg Tab PO 10/10/20 08:59 40 mg BID17 HANSEL Administration Daptomycin 400 mg/ Syringe 8 mls @ 4 mls/min 09/08/20 12:30 09/10/20 12:43 IV 09/15/20 12:29 4 mls/min Q24H HANSEL Administration Protocol Insulin Aspart 0 units 09/08/20 07:30 09/11/20 07:51 Insulin Aspart 100 Units/Ml 3 Ml Pen SC 10/08/20 07:29 1 units ACHS HANSEL Administration Insulin Glargine 20 units 09/08/20 21:00 09/10/20 20:18 Insulin Glargine Solostar 100 Units/Ml 3 Ml Pen SQ 10/08/20 20:59 20 units HS HANSEL Administration Levetiracetam 500 mg 09/08/20 09:00 09/11/20 07:51 Levetiracetam 500 Mg Tab PO 10/08/20 08:59 500 mg BID HANSEL Administration Lisinopril 40 mg 09/08/20 09:00 09/11/20 07:51 Lisinopril 40 Mg Tab PO 10/08/20 08:59 40 mg QAM HANSEL Administration Magnesium Oxide 400 mg 09/08/20 21:00 09/10/20 20:16 Magnesium Oxide 400 Mg Tab PO 10/08/20 20:59 400 mg HS HANSEL Administration Pantoprazole Sodium 40 mg 09/08/20 09:00 09/11/20 07:53 Pantoprazole 40 Mg Tab PO 10/08/20 08:59 40 mg QAM HANSEL Administration Past Medical History Medical History Acute on chronic combined systolic and diastolic CHF (congestive heart failure) (2010) Anemia Cardiomyopathy CKD (chronic kidney disease) stage 3, GFR 30-59 ml/min Dyslipidemia Frequent falls Hypertension, essential Hypothyroidism Idiopathic polyneuropathy Mitral valve regurgitation (05/03/11) Obstructive sleep apnea PAD (peripheral artery disease) Pulmonary hypertension Renal mass Type 2 diabetes mellitus with diabetic neuropathy, with long-term current use of insulin Type 2 diabetes mellitus with microalbuminuria, with long-term current use of insulin Past Family History Family History Unknown Hypertension Myocardial infarction Mother Diabetes Heart disease Father Myocardial infarction Alcoholic Denies family history of Ovarian cancer Prostate cancer Breast cancer Colorectal cancer Past Surgical History Surgical History History of colonoscopy History of removal of cyst S/P TKR (total knee replacement) (03/22/14) Social History Smoking Status: Former smoker Smoking cigarettes per day: 20 Do You Dip or Chew Tobacco: No Hx Alcohol Use: Yes Alcohol type: wine Hx Substance Use: No substance use type: does not use Physical Exam Vital Signs Last Vital Signs Temp 36.4 C L 09/11/20 07:17 Pulse 76 09/11/20 07:17 Resp 18 09/11/20 07:17 BP 162/90 H 09/11/20 07:17 Pulse Ox 95 09/11/20 07:17 Testing Laboratory Results 09/10/20 06:04 09/10/20 06:04 PT 11.1 Seconds (9.0-12.0) 09/07/20 16:53 INR 1.1 (0.9-1.1) 09/07/20 16:53 APTT 29.3 Seconds (21.0-31.0) 09/07/20 16:53 Hemoglobin A1c 5.8 % (4.5-5.6) H 09/10/20 06:04 Urine Color Yellow 09/07/20 19:32 Urine Appearance Clear (Clear) 09/07/20 19:32 Urine pH 7.0 (4.5-7.5) 09/07/20 19:32 Ur Specific Lang[place] 1.014 (1.000-1.030) 09/07/20 19:32 Urine Protein 1+ (Negative) H 09/07/20 19:32 Urine Glucose (UA) Negative (Negative) 09/07/20 19:32 Urine Ketones Negative (Negative) 09/07/20 19:32 Urine Nitrite Negative (Negative) 09/07/20 19:32 Ur Leukocyte Esterase Negative (Negative) 09/07/20 19:32 Urine WBC (Auto) 1-5 /hpf (0-5) 09/07/20 19:32 Urine RBC (Auto) 0-4 /hpf (0-4) 09/07/20 19:32 U Hyaline Cast (Auto) 0 /lpf (0-5) 09/07/20 19:32 U Epithel Cells (Auto) 0-5 /lpf (0-5) 09/07/20 19:32 Urine Bacteria (Auto) Negative (Negative) 09/07/20 19:32 09/08/20 Unknown Gram Stain - Final Leg,Left Wound Culture - Final Staph aureus MRSA 09/07/20 18:10 Aerobic Blood Culture - Preliminary Blood No growth in Aerobic bottle after 48 hours. Anaerobic Blood Culture - Preliminary No growth in Anaerobic bottle after 48 hours. 09/07/20 18:10 Aerobic Blood Culture - Preliminary Blood No growth in Aerobic bottle after 48 hours. Anaerobic Blood Culture - Final 09/11/20 07:37 POC Glucose 148 H
--- NOTE | 2020-09-11 14:00 | Magnetic Resonance Report ---
MR thoracic spine wo/w con CLINICAL HISTORY: lower extremity weakness COMPARISON STUDY: None FINDINGS: Images were acquired in the axial and sagittal planes, before and after the administration of 13 cc of intravenous Gadavist The study is mildly limited from a technical standpoint due to motion artifact. There are no suspicious areas of marrow replacement. There are no pathologically enhancing spinal masses. [employer] images reveal advanced degenerative changes within the cervical spine. There is a tiny right posterior lateral disc protrusion at the T2-3 level. There is a small central disc protrusion at the T6-7 level. There is a small right posterior lateral disc protrusion at the T7-8 level There is a small right posterior lateral disc protrusion at the T9-T10 level Postcontrast images reveal no pathologic enhancement. [employer] images reveal nonspecific right lower lobe airspace opacities, and a right lower lobe lung cyst IMPRESSION: 1. Moderately advanced degenerative changes within the cervical spine as visualized on the localizer image 2. No suspicious areas of marrow replacement 3. No cord lesions identified 4. Degenerative changes with a tiny right posterior lateral disc protrusion at the T2-3 level, small central disc protrusion at the T6-7 level, small right posterior lateral disc protrusion at the T7-8 level, and small right posterior lateral disc protrusion at the T9-T10 level. ACT 112: Negative or not required by law. Electronically signed by: Ryan Alvarez M.D. 09/11/2020 1:59 PM
--- NOTE | 2020-09-11 14:03 | Magnetic Resonance Report ---
CERVICAL SPINE MRI WITH AND WITHOUT CONTRAST HISTORY: lower extremity weakness, left upper extremity radiculopathy TECHNIQUE: Multiplanar multisequence MRI of the cervical spine was performed both before and after th e use of intravenous contrast. COMPARISON STUDY: Cervical spine CT 07/23/2020. FINDINGS: Straightening of the cervical spine. No fracture or subluxation. Prevertebral soft tissues and the C1-C2 interval are intact. The visualized posterior fossa is unremarkable. The cervical spina l cord demonstrates a normal signal intensity. There is moderate to severe disc space narrowing from C3 through C6, unchanged. There are associated endplate osteophytes at these levels. The C2-C3 verteb ral bodies and facets remain fused. Moderate facet degenerative changes seen throughout the cervical spine. Postcontrast sequences show no areas of abnormal enhancement. C2-C3: No significant central canal or neural foraminal narrowing. C3-C4: Broad-based posterior disc osteophyte complex which abuts and results in mild anterior cord de formity consistent with [id number] central canal narrowing. There is severe bilateral neural fo raminal narrowing due to the uncovertebral hypertrophy. C4-C5: Broad-based posterior disc osteophyte complex which abuts and deforms the anterior cord. This consistent with [id number] central canal narrowing. There is moderate right and severe left cate ral foraminal narrowing due to the uncovertebral and facet hypertrophy. C5-C6: Small broad-based posterior disc osteophyte complex which abuts but does not deform the anteri or cord consistent with mild central canal narrowing. There is severe bilateral neural foraminal narr owing due to the uncovertebral facet hypertrophy. C6-C7: No significant central canal or neural foraminal narrowing. C7-T1: No significant central canal or neural foraminal narrowing. IMPRESSION: 1. No fracture or subluxation within the cervical spine. 2. Moderate to severe degenerative changes as described above most pronounced at the C4-C5 level whic h demonstrates moderate central canal and severe bilateral neural foraminal narrowing. ACT 112: Negative or not required by law. Electronically signed by: Wenceslao Singleton M.D. 09/11/2020 2:01 PM
--- NOTE | 2020-09-11 14:04 | Anesthesiology Progress Note ---
Date of Service September 11, 2020 Anesthesia Post Procedure Vital Signs Vital Signs: Temp Pulse Pulse Resp BP BP Pulse Ox 09/11/20 13:38 37.8 C H 86 19 141/93 H 97 09/11/20 07:17 36.4 C L 76 18 162/90 H 95 09/11/20 00:14 36.5 C 83 20 156/82 H 92 09/10/20 15:06 36.3 C L 74 18 136/77 93 Pain Intensity Lower Back: Pain Intensity: 0 Transfer of Care Handoff Completed per policy Notes Mental Status: alert / awake / arousable and participated in evaluation Patient Amnestic to Procedure: Yes Nausea / Vomiting: adequately controlled Pain: adequately controlled Airway Patency, RR, SpO2: stable & adequate BP & HR: stable & adequate Hydration State: stable & adequate Anesthetic Complications: no major complications apparent
[2020-09-11] MEDS: DAPTOmycin 400 MG in SYRINGE 0 ML IV SCH (14:38)
--- NOTE | 2020-09-11 14:52 | Neurology Progress Note ---
Date of Service September 11, 2020 Assessment & Plan (1) Subacute subdural hematoma: (2) Weakness: Hemalatha Mercer is a 80 yo man w/ PMH of PAD, HLD, HTN, DM c/b neuropathy, CKD III, known cervical radiculopathy, CHF, frequent falls with recent fall leading to a SDH whom neurology is consulted on for worsening BLE weakness. # BLE weakness: most likely a combination of previously diagnosed critical illness myopathy, with deconditioning, underlying neuropathy and multilevel degenerative changes on MRI C spine. - can have an outpatient EMG in the next 3-4 weeks to help differentiate contribution from baseline diabetic neuropathy, critical illness myopathy/polyneuropathy (which usually co-occur) or radiculopathy - encouraged him to go to rehab to help regain his strength post-hospitalization Thank you for this interesting consult. Plan of care discussed with primary team. Please call or text with questions. (3) Lumbar transverse process fracture: (4) Idiopathic polyneuropathy: Admission and Anticipated Discharge Date Admission Date: September 08, 2020 Subjective NAEs overnight. Had MRI brain and C/T spine that did not show any acute infarct. MRI C-spine showed moderate to severe multilevel degenerative changes with moderate to severe central canal stenosis at C3-C4 and C4-C5, as well as severe bilateral neuroforaminal stenosis at C3-C4, left C4-C5, and bilateral C5-C6. MRI T-spine shows moderate multilevel degenerative changes with no significant spinal stenosis or neuroforaminal stenosis noted. Review of Systems Review of Systems: 10 point review of systems completed and negative except as in HPI. Results & Data ([facility]) Vital Signs (Past 12 Hours) Vital Signs Temp Pulse Pulse Resp BP BP Pulse Ox 09/11/20 14:28 36.8 C 87 18 127/79 91 09/11/20 14:10 37.6 C H 80 22 139/86 95 09/11/20 14:00 85 16 134/83 94 09/11/20 13:45 86 20 130/84 97 09/11/20 13:38 37.8 C H 86 19 141/93 H 97 09/11/20 07:17 36.4 C L 76 18 162/90 H 95 Exam (Neuro) Physical Exam: General Exam: GEN: NAD, sitting in bed. HEENT: No conjunctival injection, no rhinorrhea. CV: RRR, no peripheral edema PULM: Nonlabored respirations on room air. Neuro Exam: MS: Awake and Alert. Oriented to person, place, and date. Speech fluent and appropriate without dysarthria or paraphasic errors. Language intact including naming, comprehension, repetition. Cognition and memory grossly intact. Attention intact. No neglect. CN: Visual macdonald full. PERRLA OU. EOMI without nystagmus. Facial sensation intact to LT. Facial muscles full and symmetric. Hearing intact to conversation. Shoulder shrug normal. MOTOR: Normal bulk and tone. No pronator drift. BUE strength 5/5 at deltoids, biceps, triceps, wrist flexors and extensors, and hand grasp bilaterally. BLE strength 4+/5 at iliopsoas, 5-/5 hamstrings, 5-/5 quadriceps, 5/5 tibialis anterior, and 5/5 gastrocnemius bilaterally. REFLEXES: Trace at biceps, triceps, brachioradialis, absent patella and absent Achilles bilaterally. Flexor plantar responses bilaterally. SENSORY: Intact to LT without extinction to double simultaneous stimuli. COORDINATION: No dysmetria or ataxia on [id number] bilaterally. Normal Donovan bilaterally. GAIT: deferred given physical status PG Care Time/CCT Total # of Minutes Spent Total Time Spent with Patient: Total time spent is greater than 50% in coordination of care (as documented) at patient's floor/unit and/or counseling patient: Coding Level of Care Code 30731 Subseq Hosp Care Lvl 3 Diagnoses Subacute subdural hematoma S06.5X9A Weakness R53.1 Lumbar transverse process fracture S32.009A Encounter type: initial encounter Fracture type: closed Idiopathic polyneuropathy G60.9 (1) Lumbar transverse process fracture Encounter type: initial encounter Fracture type: closed Qualified Code(s): S32.009A - Unspecified fracture of unspecified lumbar vertebra, initial encounter for closed fracture
[2020-09-11] MEDS: MAGNESIUM OXIDE 400 MG TAB PO SCH (20:08)
[2020-09-11] MEDS: INSULIN GLARGINE SOLOSTAR 100 UNITS/ML 3 ML PEN SQ SCH (20:10)
[2020-09-11] MEDS: HYDROCODONE/ACETAMOPHEN 5/325MG TAB PO PRN (20:40)
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
[2020-09-12] MEDS: ACETAMINOPHEN 500 MG TAB PO SCH ×3 (05:40→22:37)
[2020-09-12] MEDS: HYDROCODONE/ACETAMOPHEN 5/325MG TAB PO PRN ×3 (05:40→20:12)
[2020-09-12 07:06] LABS: Hematocrit (blood only) 39.8 % (42-52); Hemoglobin 12.2 g/dL (14.0-18.0); Mean Corpuscular Hemoglobin 26.5 pg (25-34); Mean Corpuscular Hgb Conc 30.7 g/dL (32-36); Mean Corpuscular Volume 86.5 fL (80-100); Mean Platelet Volume 9.3 fL (7.4-10.4); Platelet Count 189 K/uL (130-400); RDW Coefficient of Variation 17.1 % (11.5-14.5); RDW Standard Deviation 53.8 fL (36.4-46.3); White Blood Count 5.26 K/uL (4.8-10.8)
[2020-09-12 07:49] LABS: BUN Creatinine Ratio 23.5 (10-20); Calcium 8.6 mg/dl (8.5-10.1); Creatinine Clr Calc Pharmacy 68.3 ml/min; Est GFR (African American) 65.6; Est GFR (Non-African American) 56.6; Potassium 3.9 mmol/L (3.5-5.1)
[2020-09-12] MEDS: levETIRAcetam 500 MG TAB PO SCH ×2 (09:25→20:16)
[2020-09-12] MEDS: FERROUS SULFATE 325 MG TAB PO SCH ×2 (09:25→18:08)
[2020-09-12] MEDS: FUROSEMIDE 40 MG TAB PO SCH ×2 (09:26→19:58)
[2020-09-12] MEDS: DOCUSATE SODIUM 100 MG CAP PO SCH ×2 (09:26→20:21)
[2020-09-12] MEDS: AMIODARONE 200 MG TAB PO SCH (09:26)
[2020-09-12] MEDS: PANTOprazole 40 MG TAB PO SCH (09:26)
[2020-09-12] MEDS: lisinopril 40 MG TAB PO SCH (09:27)
[2020-09-12] MEDS: carvediloL 6.25 MG TAB PO SCH ×2 (09:27→20:15)
[2020-09-12] MEDS: INSULIN ASPART 100 UNITS/ML 3 ML PEN SC SCH ×4 (09:28→22:32)
[2020-09-12] MEDS: DAPTOmycin 400 MG in SYRINGE 0 ML IV SCH (12:50)
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
[2020-09-12] MEDS: MAGNESIUM OXIDE 400 MG TAB PO SCH (20:17)
[2020-09-12] MEDS: INSULIN GLARGINE SOLOSTAR 100 UNITS/ML 3 ML PEN SQ SCH (22:31)
[2020-09-13] MEDS: ACETAMINOPHEN 500 MG TAB PO SCH ×3 (06:34→21:29)
[2020-09-13] MEDS: AMIODARONE 200 MG TAB PO SCH (08:01)
[2020-09-13] MEDS: lisinopril 40 MG TAB PO SCH (08:02)
[2020-09-13] MEDS: PANTOprazole 40 MG TAB PO SCH (08:02)
[2020-09-13] MEDS: DOCUSATE SODIUM 100 MG CAP PO SCH ×3 (08:02→21:28)
[2020-09-13] MEDS: FUROSEMIDE 40 MG TAB PO SCH ×2 (08:02→17:16)
[2020-09-13] MEDS: FERROUS SULFATE 325 MG TAB PO SCH ×2 (08:02→17:18)
[2020-09-13] MEDS: levETIRAcetam 500 MG TAB PO SCH ×2 (08:03→21:29)
[2020-09-13] MEDS: carvediloL 6.25 MG TAB PO SCH ×2 (08:06→21:29)
[2020-09-13] MEDS: INSULIN ASPART 100 UNITS/ML 3 ML PEN SC SCH ×4 (08:07→21:27)
[2020-09-13] MEDS: DAPTOmycin 400 MG in SYRINGE 0 ML IV SCH (12:26)
[2020-09-13] MEDS: HYDROCODONE/ACETAMOPHEN 5/325MG TAB PO PRN (13:11)
[2020-09-13] MEDS: INSULIN GLARGINE SOLOSTAR 100 UNITS/ML 3 ML PEN SQ SCH (21:30)
[2020-09-13] MEDS: MAGNESIUM OXIDE 400 MG TAB PO SCH (21:31)
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
[2020-09-14] MEDS: HYDROCODONE/ACETAMOPHEN 5/325MG TAB PO PRN (00:11)
[2020-09-14] MEDS: ACETAMINOPHEN 500 MG TAB PO SCH ×3 (06:21→22:19)
[2020-09-14 06:41] LABS: Hematocrit (blood only) 39.3 % (42-52); Hemoglobin 12.4 g/dL (14.0-18.0); Mean Corpuscular Hemoglobin 27.2 pg (25-34); Mean Corpuscular Hgb Conc 31.6 g/dL (32-36); Mean Corpuscular Volume 86.2 fL (80-100); Mean Platelet Volume 9.4 fL (7.4-10.4); Platelet Count 172 K/uL (130-400); RDW Standard Deviation 53.2 fL (36.4-46.3); Red Blood Count 4.56 M/uL (4.7-6.1); White Blood Count 4.65 K/uL (4.8-10.8)
[2020-09-14 07:15] LABS: BUN Creatinine Ratio 25.6 (10-20); Calcium 8.7 mg/dl (8.5-10.1); Creatinine Clr Calc Pharmacy 64.6 ml/min; Est GFR (African American) 61.3; Est GFR (Non-African American) 52.9; Potassium 3.8 mmol/L (3.5-5.1)
[2020-09-14] MEDS: DOCUSATE SODIUM 100 MG CAP PO SCH ×2 (09:03→22:20)
[2020-09-14] MEDS: carvediloL 6.25 MG TAB PO SCH ×2 (09:03→22:32)
[2020-09-14] MEDS: lisinopril 40 MG TAB PO SCH (09:03)
[2020-09-14] MEDS: AMIODARONE 200 MG TAB PO SCH (09:03)
[2020-09-14] MEDS: FERROUS SULFATE 325 MG TAB PO SCH ×2 (09:03→17:20)
[2020-09-14] MEDS: PANTOprazole 40 MG TAB PO SCH (09:04)
[2020-09-14] MEDS: FUROSEMIDE 40 MG TAB PO SCH ×2 (09:04→17:17)
[2020-09-14] MEDS: levETIRAcetam 500 MG TAB PO SCH ×2 (09:04→22:34)
[2020-09-14] MEDS: INSULIN ASPART 100 UNITS/ML 3 ML PEN SC SCH ×4 (09:05→22:20)
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
[2020-09-14] MEDS: DAPTOmycin 400 MG in SYRINGE 0 ML IV SCH (12:46)
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
[2020-09-14] MEDS: INSULIN GLARGINE SOLOSTAR 100 UNITS/ML 3 ML PEN SQ SCH (22:33)
[2020-09-14] MEDS: MAGNESIUM OXIDE 400 MG TAB PO SCH (22:35)
[2020-09-15] MEDS: ACETAMINOPHEN 500 MG TAB PO SCH ×3 (06:12→21:20)
[2020-09-15] MEDS: AMIODARONE 200 MG TAB PO SCH (09:12)
[2020-09-15] MEDS: FERROUS SULFATE 325 MG TAB PO SCH ×2 (09:12→16:35)
[2020-09-15] MEDS: DOCUSATE SODIUM 100 MG CAP PO SCH ×2 (09:12→21:19)
[2020-09-15] MEDS: levETIRAcetam 500 MG TAB PO SCH ×2 (09:14→21:19)
[2020-09-15] MEDS: FUROSEMIDE 40 MG TAB PO SCH ×2 (09:14→16:35)
[2020-09-15] MEDS: PANTOprazole 40 MG TAB PO SCH (09:15)
[2020-09-15] MEDS: lisinopril 40 MG TAB PO SCH (09:15)
[2020-09-15] MEDS: DOXYCYCLINE HYCLATE 100 MG CAP PO SCH ×2 (09:15→21:19)
[2020-09-15] MEDS: INSULIN ASPART 100 UNITS/ML 3 ML PEN SC SCH ×4 (09:18→21:10)
[2020-09-15] MEDS: HYDROCODONE/ACETAMOPHEN 5/325MG TAB PO PRN ×2 (09:24→15:38)
[2020-09-15] MEDS: carvediloL 6.25 MG TAB PO SCH ×2 (10:49→21:19)
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
[2020-09-15] MEDS: INSULIN GLARGINE SOLOSTAR 100 UNITS/ML 3 ML PEN SQ SCH (21:11)
[2020-09-15] MEDS: MAGNESIUM OXIDE 400 MG TAB PO SCH (21:19)
[2020-09-16] MEDS: ACETAMINOPHEN 500 MG TAB PO SCH ×3 (05:05→20:53)
[2020-09-16] MEDS: FUROSEMIDE 40 MG TAB PO SCH ×2 (08:56→17:39)
[2020-09-16] MEDS: DOCUSATE SODIUM 100 MG CAP PO SCH ×2 (08:56→20:44)
[2020-09-16] MEDS: FERROUS SULFATE 325 MG TAB PO SCH ×2 (08:57→17:41)
[2020-09-16] MEDS: carvediloL 6.25 MG TAB PO SCH ×2 (08:58→20:44)
[2020-09-16] MEDS: AMIODARONE 200 MG TAB PO SCH (08:58)
[2020-09-16] MEDS: levETIRAcetam 500 MG TAB PO SCH ×2 (08:58→20:43)
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
[2020-09-16] MEDS: lisinopril 40 MG TAB PO SCH (08:59)
[2020-09-16] MEDS: PANTOprazole 40 MG TAB PO SCH (08:59)
[2020-09-16] MEDS: DOXYCYCLINE HYCLATE 100 MG CAP PO SCH ×2 (09:01→20:43)
[2020-09-16] MEDS: INSULIN ASPART 100 UNITS/ML 3 ML PEN SC SCH ×4 (09:02→20:50)
[2020-09-16] MEDS: HYDROCODONE/ACETAMOPHEN 5/325MG TAB PO PRN (19:08)
[2020-09-16] MEDS: MAGNESIUM OXIDE 400 MG TAB PO SCH (20:43)
[2020-09-16] MEDS: INSULIN GLARGINE SOLOSTAR 100 UNITS/ML 3 ML PEN SQ SCH (20:49)
[2020-09-17] MEDS: ACETAMINOPHEN 500 MG TAB PO SCH (04:25)
[2020-09-17] MEDS: HYDROCODONE/ACETAMOPHEN 5/325MG TAB PO PRN (07:43)
[2020-09-17] MEDS: lisinopril 40 MG TAB PO SCH (07:45)
[2020-09-17] MEDS: PANTOprazole 40 MG TAB PO SCH (07:45)
[2020-09-17] MEDS: carvediloL 6.25 MG TAB PO SCH (07:45)
[2020-09-17] MEDS: levETIRAcetam 500 MG TAB PO SCH (07:46)
[2020-09-17] MEDS: FUROSEMIDE 40 MG TAB PO SCH (07:46)
[2020-09-17] MEDS: DOXYCYCLINE HYCLATE 100 MG CAP PO SCH (07:47)
[2020-09-17] MEDS: AMIODARONE 200 MG TAB PO SCH (07:47)
[2020-09-17] MEDS: DOCUSATE SODIUM 100 MG CAP PO SCH (07:48)
[2020-09-17] MEDS: FERROUS SULFATE 325 MG TAB PO SCH (07:48)
[2020-09-17] MEDS: INSULIN ASPART 100 UNITS/ML 3 ML PEN SC SCH ×2 (08:41→12:32)
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
== END 2020-09-17 13:08 ==
LOC: EDUNIT# 16:18 → ED 16:18 → SUATTDRO 09-08 00:15 → 2N 09-08 00:15 → INTOOBSV 09-08 00:15 → 2N 09-08 01:02 → 3E 09-15 07:59